=== PATIENT | female | born 1965 | race Two or more races ===

== ENCOUNTER 2025-06-10 18:46 | Emergency (ER) | payer MEDICAID, OTHER ==
[~2025-06-10] VITALS: Ht 170.2 cm; Wt 68.0 kg
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
--- NOTE | 2025-06-10 20:16 | DVH ---
CLINICAL INDICATION: trauma TECHNIQUE: 3 views right foot, 3 views right ankle XY R FOOT 3 VIEW XRAY, XY R ANKLE 3 VIEW Comparison: None FINDINGS: Transverse, mildly comminuted and displaced fracture of the medial malleolus. Nondisplaced transverse fracture of the lateral malleolus below the level of the ankle mortise. Comminuted fracture of the 1st metatarsal between the neck and articular aspect of the base. Addition al comminuted intra-articular fracture of the 1st proximal phalanx with mild displacement of the frac ture fragment at the lateral corner of the base. Comminuted fractures of the 2nd, 3rd, and possibly 4th metatarsal bases. Comminuted fractures of the 4th distal phalanx, and fused 5th middle/distal phalanxes. Possible nondisplaced fracture of the 3rd metatarsal head. Associated soft tissue swelling of the ankle and forefoot. No additional identified fracture. No dislocation. IMPRESSION: 1. Acute mildly displaced bimalleolar right ankle fracture. 2. Comminuted intra-articular fractures of the 1st metatarsal and proximal phalanx. 3. Comminuted fractures of the 2nd, 3rd, and possibly 4th metatarsal bases. 4. Fractures of the 4th-5th distal phalanxes, and possibly the 3rd metatarsal neck.
[2025-06-10 22:11] VITALS: PULSE 90; O2SAT 97
[2025-06-10 22:25] VITALS: BP 151/63; PULSE 91; RESP 18; TEMP 98.5; O2SAT 97
== END 2025-06-10 22:44 | disposition short-term general hospital (02) ==
LOC: ER 18:46 → EDBD 18:46 → ER 22:44
DX: S92.311A Displaced fracture of first metatarsal bone, right foot, initial encounter for closed fracture (principal); S82.51XA Displaced fracture of medial malleolus of right tibia, initial encounter for closed fracture; E11.9 Type 2 diabetes mellitus without complications; E78.5 Hyperlipidemia, unspecified; X58.XXXA Exposure to other specified factors, initial encounter; Y93.89 Activity, other specified; Y92.488 Other paved roadways as the place of occurrence of the external cause; Y99.8 Other external cause status
CPT/HCPCS: 73610; 73630